=== PATIENT | female | born 1970 | race Caucasian/White ===

== ENCOUNTER 2018-03-15 17:29 | Emergency (ER) | payer OTHER ==
[~2018-03-15] VITALS: Ht 160 cm; Wt 74.8 kg
[2018-03-15 17:36] VITALS: BP 118/72
--- NOTE | 2018-03-15 18:32 | ED UPPER/LOWER EXTREMITY COMPL ---
History of Present Illness General Chief Complaint: Foot or Ankle Injury Stated Complaint: RT FOOT INJURY Source: patient Exam Limitations: no limitations Vital Signs & Intake/Output Vital Signs & Intake/Output Vital Signs Date Time Temp Pulse Resp B/P B/P Pulse O2 O2 Flow FiO2 Mean Ox Delivery Rate 03/15 1736 98.3 60 16 118/72 99 Room Air Allergies Coded Allergies: Penicillins (Mild, VOMITTING 03/15/18) Triage Note: PT STATES THAT SHE TRIPPED AND FELL YESTERDAY AND HEARD A POP TO TOP OF HER R FOOT, SLIGHT SWELLING NOTED M DECLINES MEDS AT TRIAGE Triage Nurses Notes Reviewed? yes Onset: Abrupt Duration: constant Timing: recent history Severity: moderate Severity Numbers: 5 HPI: Patient is a 47-year-old female who presents emergency room yesterday while in the WALKING down steps she landed awkwardly and twisted her right foot resulting acute onset of pain to the mid foot region. Patient states ambulation and palpation makes worse. Patient took Tylenol yesterday. Denies any ankle or knee pain. Skin intact. Past History Travel History Traveled to [place] past 21 day No Medical History Any Pertinent Medical History? see below for history Neurological: NONE EENT: NONE Cardiovascular: NONE Respiratory: asthma Gastrointestinal: NONE Hepatic: NONE Renal: NONE Musculoskeletal: NONE Psychiatric: NONE Endocrine: NONE Blood Disorders: NONE Cancer(s): NONE Surgical History Surgical History: non-contributory Psychosocial History What is your primary language Yakut Tobacco Use: Never used ETOH Use: denies use Illicit Drug Use: denies illicit drug use Family History Hx Contributory? No Review of Systems Review of Systems Constitutional: Reports: no symptoms. EENTM: Reports: no symptoms. Respiratory: Reports: no symptoms. Cardiovascular: Reports: no symptoms. Gastrointestinal/Abdominal: Reports: no symptoms. Genitourinary: Reports: no symptoms. Musculoskeletal: Reports: see HPI, joint pain. Skin: Reports: no symptoms. Neurological/Psychological: Reports: no symptoms. Hematologic/Endocrine: Reports: no symptoms. Immunological: Reports: no symptoms. All Other Systems: Reviewed and Negative Physical Exam Physical Exam General Appearance: no apparent distress, alert, awake Head: atraumatic Eyes: Bilateral: normal appearance. Ears, Nose, Throat: hearing grossly normal Cardiovascular/Respiratory: no respiratory distress Peripheral Pulses: 2+ dorsalis pedis (R) Neurologic/Tendon: normal sensation, normal motor functions, normal tendon functions, responds to pain, no evidence tendon injury, no pulse deficit Skin: intact Comments: Right knee normal inspection nontender Right ankle normal inspection nontender Right foot noted plantar aspect of foot ecchymosis and point tenderness and mid foot dorsal region GENERALIZED point tenderness Dermatomes intact pedal pulse +2 capillary refill less than 2 seconds Progress Differential Diagnosis: arterial insufficiency, compartment syndrome, contusion, dislocation, DVT, fracture, gout, septic arthritis, sprain, tendon injury Plan of Care: Current Medications Sig/Rell Start time Last Medication Dose Stop Time Status Admin Ibuprofen 600 MG ONCE ONE 03/15 1845 UNVr (Motrin) 03/15 1846 No osseous injury noted after x-rays were resulted, patient was neurovascularly intact nontender ankle and knee Raman wrap was placed to the right foot PRE/post neurovascular was intact Diagnostic Imaging: Viewed by Me: Radiology Read. Radiology Impression: no acute abnormality, no fracture Comments: PATIENT: DEEP CODY PRESENT AGE: 47 PATIENT ACCOUNT NO: [id number] : 71 LOCATION: [facility] ORDERING PHYSICIAN: Westley Lam DO SERVICE DATE: 03/15/18 EXAM TYPE: RAD - XRY-FOOT COMPLETE, R EXAMINATION: XR FOOT, RIGHT CLINICAL INFORMATION: Right foot pain and swelling. Patient slipped and fell. COMPARISON: None TECHNIQUE: AP, lateral, and oblique views of the right foot. FINDINGS: The bones and soft tissues are normal. No fracture. Alignment is anatomic. Joint spaces are maintained. IMPRESSION: Normal right foot. 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 Begin using the crutches until YOU can walk without pain. Begin over-the- counter ibuprofen for pain and inflammation. Begin icing 20 MINUTES every 2 hours. If no better in one week follow-up with orthopedic Dr. Chance. If symptoms worsen return to emergency room. Begin using the Raman wrap for swelling Departure Forms: Customer Survey General Discharge Information
--- NOTE | 2018-03-15 18:36 | RADIOLOGY REPORT ---
EXAMINATION: XR FOOT, RIGHT CLINICAL INFORMATION: Right foot pain and swelling. Patient slipped and fell. COMPARISON: None TECHNIQUE: AP, lateral, and oblique views of the right foot. FINDINGS: The bones and soft tissues are normal. No fracture. Alignment is anatomic. Joint spaces are maintained. IMPRESSION: Normal right foot.
== END 2018-03-15 19:00 ==
LOC: ERH 17:29
DX: S93.601A Unspecified sprain of right foot, initial encounter (principal); X50.9XXA Other and unspecified overexertion or strenuous movements or postures, initial encounter; Y93.01 Activity, walking, marching and hiking
CPT/HCPCS: 73630-RT